=== PATIENT | male | born 1950 | race Two or more races ===

== ENCOUNTER 2017-01-29 03:40 | Emergency (ER) | payer MEDICARE, MEDICAID ==
[~2017-01-29] VITALS: Ht 167.6 cm; Wt 65.3 kg
[2017-01-29 04:00] VITALS: BP 205/101
[2017-01-29] MEDS ORDERED: DiphenhydrAMINE 50mg/ml Inj IVP ONE (04:00)
[2017-01-29] MEDS ORDERED: Solu-MEDROL 125mg Inj IVP ONE (04:00)
[2017-01-29] MEDS ORDERED: BENADRYL25 MG ORAL (04:00)
[2017-01-29] MEDS ORDERED: PREDNISONE20 MG ORAL (04:00)
--- NOTE | 2017-01-29 04:01 | Emergency Room Report ---
History of Present Illness General Chief Complaint: Allergic Reaction Source: Patient Present Illness [facility] This is a 66-year-old male who had a recent dental surgery last week. He was started on Augmentin. He had amoxicillin before with minimal side effect. Yesterday he broke out in a rash. Itching. He stopped the medicine but still itching. No fever chills but no nausea no vomiting. No respiratory complaint. Has not take anything else for this. Allergies: Coded Allergies: LEVOFLOXACIN (Verified Allergy, Unknown, 01/29/17) Patient History Past Medical History: see triage record, old chart reviewed Past Surgical History: other Pertinent Family History: none Social History: Denies: smoking Immunizations: other Reviewed Nursing Documentation: PMH: Agreed, PSxH: Agreed Nursing Documentation-PMH Past Medical History: No Stated History Review of Systems Eye: Denies: blurred vision, eye pain ENT: Denies: ear pain, nose congestion, throat swelling Respiratory: Denies: cough, shortness of breath Cardiovascular: Denies: chest pain, palpitations Gastrointestinal: Denies: abdominal pain, diarrhea, nausea, vomiting Musculoskeletal: Denies: back pain, joint pain Skin: Denies: rash Neurological: Denies: headache, numbness Endocrine: Denies: increased thirst, increased urine Hematologic/Lymphatic: Denies: easy bruising All Other Systems: negative except mentioned in HPI Physical Exam Vital Signs Date Time Temp Pulse Resp B/P Pulse Ox O2 Delivery O2 Flow Rate FiO2 01/29/17 03:51 97.9 58 16 205/101 99 Room Air vital was high blood pressure Sp02 EP Interpretation: reviewed, normal General Appearance: well appearing, no apparent distress, alert Head: normocephalic, atraumatic Eyes: bilateral eye EOMI, bilateral eye PERRL ENT: hearing grossly normal, normal pharynx Neck: full range of motion, supple, no meningismus Respiratory: chest non-tender, lungs clear, normal breath sounds Cardiovascular #1: regular rate, rhythm, no murmur Gastrointestinal: normal bowel sounds, non tender, no mass, no organomegaly, no bruit, non-distended Musculoskeletal: back normal, gait/station normal, normal range of motion Neurologic: alert, oriented x3 Psychiatric: mood/affect normal Skin: warm/dry, other - Scattered urticaria Medical Decision Making Diagnostic Impression: Primary Impression: Allergic reaction Qualified Codes: T78.40XA - Allergy, unspecified, initial encounter Additional Impression: Hypertension Qualified Codes: I10 - Essential (primary) hypertension ER Course Patient with allergic action to Augmentin. No anaphylaxis. No respiratory issue. Better after medication. We'll discharge home. We'll stop the antibiotics. Last Vital Signs Date Time Temp Pulse Resp B/P Pulse Ox O2 Delivery O2 Flow Rate FiO2 01/29/17 03:51 97.9 58 16 205/101 99 Room Air Status: improved Disposition: HOME, SELF-CARE Condition: Stable Scripts Prednisone* (PREDNISONE*) 20 Mg Tablet 40 MG ORAL DAILY, #10 TAB Prov: MARIAM OSHEA M.D. 01/29/17 Diphenhydramine Hcl* (BENADRYL*) 25 Mg Capsule 50 MG ORAL Q6H Y for Itching, #30 CAP Prov: MARIAM OSHEA M.D. 01/29/17 Patient Instructions: Drug Allergy Additional Instructions: Stop antibiotics. From now on your allergic to penicillin base antibiotics. Followup your DrChavez in 2-3 days. Return if symptom worsen. MARIAM OSHEA M.D. Jan 29, 2017 04:01
[2017-01-29 04:27] VITALS: BP 183/95
[2017-01-29 04:55] VITALS: BP 183/95
== END 2017-01-29 04:55 | disposition home or self-care (01) ==
LOC: EMR 03:50
DX: L50.9 Urticaria, unspecified (principal); T36.0X5A Adverse effect of penicillins, initial encounter; Y92.9 Unspecified place or not applicable; I10 Essential (primary) hypertension
CPT/HCPCS: 96374; 96375; 99284; J1200; J2930

== ENCOUNTER 2017-03-11 21:43 | Inpatient (IN) | payer MEDICARE, MEDICAID ==
[~2017-03-11] VITALS: Ht 170.2 cm; Wt 68.0 kg
[~2017-03-11 21:43] MED LIST: BENADRYL25 MG ORAL; PREDNISONE20 MG ORAL
[2017-03-11] MEDS ORDERED: SIMVASTATIN5 MG ORAL (22:12)
[2017-03-11] MEDS ORDERED: ASPIR 8181 MG ORAL (22:12)
[2017-03-11] MEDS ORDERED: ZETIA10 MG ORAL (22:12)
[2017-03-11] MEDS ORDERED: BENAZEPRIL HCL10 MG ORAL (22:12)
[2017-03-11] MEDS ORDERED: Morphine Sulfate 4mg/ml Inj IVP ONE (22:45)
[2017-03-11 23:37] LABS: APPEARANCE,URINE CLEAR; KETONES,URINE NEGATIVE (NEGATIVE); LEUKOCYTE ESTERASE ,URINE 1+ (NEGATIVE); NITRITE,URINE NEGATIVE (NEGATIVE); PH,URINE 5 (4.5-8.0); PROTEIN,URINE NEGATIVE (NEGATIVE); UROBILINOGEN,URINE NORMAL MG/DL (0.0-1.0)
[2017-03-11 23:38] LABS: BASOPHILS % (AUTO) 0.7 % (0.0-2.0); EOSINOPHILS % (AUTO) 1.7 % (0.0-3.0); LYMPHOCYTES % (AUTO) 27.4 % (20.0-45.0); MEAN CORPUSCULAR HGB CONC 34.6 G/DL (32.0-36.0); MEAN CORPUSCULAR VOLUME 95 FL (80-99); MONOCYTES % (AUTO) 6.3 % (1.0-10.0); NEUTROPHILS % (AUTO) 63.8 % (45.0-75.0); PLATELET COUNT 250 K/UL (150-450); RED BLOOD COUNT 4.48 M/UL (4.70-6.10); RED CELL DISTRIBUTION WIDTH 12.3 % (11.6-14.8); WHITE BLOOD COUNT 11.8 K/UL (4.8-10.8)
[2017-03-11 23:55] VITALS: BP 185/118
[2017-03-11 23:56] LABS: ALBUMIN/GLOBULIN RATIO 1.4 (1.0-2.7); CALCIUM 9.7 mg/dL (8.6-10.2); CREATININE 1.4 mg/dL (0.7-1.2); GLOMERULAR FILTRATION RATE 50.7 mL/min (>60); POTASSIUM 4.6 mEQ/L (3.4-4.9); TOTAL PROTEIN 7.1 g/dL (6.6-8.7)
[2017-03-12] VITALS (7 sets, daily range): BP systolic 141–162; BP diastolic 90–98
[2017-03-12 00:03] LABS: INR 0.9 (0.9-1.1); PROTHROMBIN TIME 9.9 SEC (9.30-11.50)
[2017-03-12 00:03] LABS: BACTERIA,URINE OCCASIONAL /HPF; MUCUS,URINE OCCASIONAL /LPF (NONE/OCC); RBC,URINE 0-2 /HPF (0 - 0); SQUAMOUS EPITHELIAL CELL,UR OCCASIONAL /LPF (NONE/OCC)
--- NOTE | 2017-03-12 04:33 | Emergency Room Report ---
History of Present Illness General Chief Complaint: Abdominal Pain Source: Patient Present Illness HPI Patient presents with 3 days of intermittent mid abdominal pain. It has worsened today and is severe (7/10) when moving about. There is some underlying pain. No change in bowels, moved earlier. No blood in stool. Some nausea. No fevers. No vomiting. No dysuria, hematuria. Some change in appetite. No medicine taken for the pain. Pain radiates somewhat to L flank. Not rad to back. No prior GI work up or colonoscopy. Umbilical hernia repair. Not area of tenderness. No chest pain, palpitations, h/o a fib. No diabetes. No headache, dizziness. No rashes, joint pain. H/O HTN. Allergies: Coded Allergies: PENICILLINS (Verified Allergy, Mild, hives, 03/12/17) LEVOFLOXACIN (Verified Allergy, Unknown, 01/29/17) Patient History Past Medical History: see triage record, HTN Past Surgical History: other - umbilical hernia repair Social History: Denies: smoking - former Social History Narrative with daughter Reviewed Nursing Documentation: PMH: Agreed, PSxH: Agreed Nursing Documentation-PMH Past Medical History: No History, Except For Hx Hypertension: Yes Hx Gastrointestinal Problems: Yes - ulcers Review of Systems All Other Systems: negative except mentioned in HPI Physical Exam Vital Signs Date Time Temp Pulse Resp B/P (MAP) Pulse Ox O2 Delivery O2 Flow Rate FiO2 03/11/17 21:44 98.1 75 20 208/118 98 Room Air Sp02 EP Interpretation: reviewed, normal General Appearance: well appearing, no apparent distress, GCS 15 Head: normocephalic Eyes: bilateral eye normal inspection, bilateral eye PERRL ENT: moist mucus membranes Neck: supple Respiratory: lungs clear, normal breath sounds Cardiovascular #1: regular rate, rhythm, no edema Cardiovascular #2: 2+ radial (R) Gastrointestinal: normal inspection, normal bowel sounds, no mass, non- distended, no rebound, guarding - mid abdomen, tenderness, scaphoid Musculoskeletal: back normal, gait/station normal, normal range of motion, no calf tenderness Neurologic: alert, oriented x3, grossly normal Psychiatric: mood/affect normal Skin: normal inspection, warm/dry Medical Decision Making Diagnostic Impression: Primary Impression: Omental infarction ER Course Patient with abdominal pain, intermittent without fever or change in bowels. Ddx: diverticulitis, IBS, GItis, muscle strain, UTI, hernia amongst others. Exam is significant and patient needs evaluation with EKG, labs, CT abd/pelvis with contrast. Patient will be treated with zofran and morphine. (Initially reluctant to receive analgesia as states not significant pain when recumbent.) IV hydration ordered. Complicated patient. Labs with mild leukocytosis. Mild renal insufficiency. Importance of full CT with circulatory evaluation exceeds risk. Contrast ordered. Improved with tx. Antibiotics not indicated. Needs observation due to omental infarct and leukocytosis. Not surgical problem (may need vascular evaluation). Discussed with Dr. Osei. Discussed with Dr. To who accepts the patient. Admit med. Laboratory Tests Test 03/11/17 22:45 03/11/17 23:15 White Blood Count 11.8 K/UL (4.8-10.8) H Red Blood Count 4.48 M/UL (4.70-6.10) L Hemoglobin 14.8 G/DL (14.2-18.0) Hematocrit 42.7 % (42.0-52.0) Mean Corpuscular Volume 95 FL (80-99) Mean Corpuscular Hemoglobin 33.0 PG (27.0-31.0) H Mean Corpuscular Hemoglobin Concent 34.6 G/DL (32.0-36.0) Red Cell Distribution Width 12.3 % (11.6-14.8) Platelet Count 250 K/UL (150-450) Mean Platelet Volume 6.0 FL (6.5-10.1) L Neutrophils (%) (Auto) 63.8 % (45.0-75.0) Lymphocytes (%) (Auto) 27.4 % (20.0-45.0) Monocytes (%) (Auto) 6.3 % (1.0-10.0) Eosinophils (%) (Auto) 1.7 % (0.0-3.0) Basophils (%) (Auto) 0.7 % (0.0-2.0) Prothrombin Time 9.9 SEC (9.30-11.50) Prothrombin Time INR 0.9 (0.9-1.1) PTT 27 SEC (23-33) Sodium Level 140 mEQ/L (135-145) Potassium Level 4.6 mEQ/L (3.4-4.9) Chloride Level 103 mEQ/L (98-107) Carbon Dioxide Level 26 mEQ/L (20-30) Anion Gap 11 (5-15) Blood Urea Nitrogen 25 mg/dL (7-23) H Creatinine 1.4 mg/dL (0.7-1.2) H Estimate Glomerular Filtration Rate 50.7 mL/min (>60) Glucose Level 100 mg/dL (74-106) Calcium Level 9.7 mg/dL (8.6-10.2) Total Bilirubin 0.3 mg/dL (0.0-1.2) Aspartate Amino Transferase (AST) 25 U/L (5-40) Alanine Aminotransferase (ALT) 29 U/L (3-41) Alkaline Phosphatase 92 U/L (40-129) Total Protein 7.1 g/dL (6.6-8.7) Albumin 4.2 g/dL (3.5-5.2) Globulin 2.9 g/dL Albumin/Globulin Ratio 1.4 (1.0-2.7) Lipase 42 U/L (< 60) Urine Color Yellow Urine Appearance Clear Urine pH 5 (4.5-8.0) Urine Specific [place] 1.020 (1.005-1.035) Urine Protein Negative (NEGATIVE) Urine Glucose (UA) Negative (NEGATIVE) Urine Ketones Negative (NEGATIVE) Urine Occult Blood Negative (NEGATIVE) Urine Nitrite Negative (NEGATIVE) Urine Bilirubin Negative (NEGATIVE) Urine Urobilinogen Normal MG/DL (0.0-1.0) Urine Leukocyte Esterase 1+ (NEGATIVE) H Urine RBC 0-2 /HPF (0 - 0) H Urine WBC 2-4 /HPF (0 - 0) Urine Squamous Epithelial Cells Occasional /LPF Urine Bacteria Occasional /HPF (NONE) Urine Mucus Occasional /LPF EKG Diagnostic Results Rate: bradycardiac Rhythm: NSR ST Segments: no acute changes Rhythm Strip Diag. Results EP Interpretation: yes Rhythm: no PVC's, no ectopy, other - jimmie CT/MRI/US Diagnostic Results CT/MRI/US Diagnostic Results : Imaging Test Ordered: abdomen/pelvis Impression omental infarct Impression: Inflammatory change of the mental fat, as described. This could represent a small omental infarct No evidence of acute process otherwise. Circumferential mural thickening of the distal abdominal aorta. Probably on the basis of atherosclerosis; focal aortitis as etiology not completely excludable but much less likely Bilateral renal parapelvic cysts Bilateral renal subcentimeter low-attenuation lesions, too small to characterize , most likely benign simple cyst. No further followup necessary Other findings as noted, including posterior dependent ulnar atelectasis, degenerative lumbar spondylosis, small fat-containing left inguinal hernia Last Vital Signs Date Time Temp Pulse Resp B/P (MAP) Pulse Ox O2 Delivery O2 Flow Rate FiO2 03/12/17 15:56 97.6 57 19 141/93 96 Room Air Status: improved Disposition: ADMITTED INPATIENT Condition: Serious Referrals: NON PHYSICIAN (PCP) Deny Hall M.D. Mar 12, 2017 04:33
--- NOTE | 2017-03-12 09:30 | Diagnostic Imaging Report ---
Clinical Indication: Abdominal pain x1 day Technique: Patient given oral contrast. IV administration nonionic contrast. Venous phase spiral acquisition obtained through the abdomen and pelvis. Multiplanar reconstructions were generated. Total dose length product 577 mGycm. CTDIvol(s) 11 mGy. Dose reduction achieved using automated exposure control Comparison: None Findings: There is a small fat-containing left inguinal hernia. No evidence of diverticulosis or diverticulitis. The appendix is not definitely identified. No findings to suggest acute appendicitis are evident, however. Contrast is seen throughout the entirety of the small bowel and well into the colon. No small bowel distention or small bowel wall thickening demonstrated. The distal esophagus, stomach, duodenum are unremarkable. No free or loculated intraperitoneal air or fluid is evident. There is focal increased attenuation of the omental fat just above the umbilicus and just to the right of midline anteriorly. The liver, gallbladder, bile ducts, pancreas, spleen, adrenals are unremarkable. The kidneys demonstrate bilateral parapelvic cysts. They also demonstrate bilateral subcentimeter low-attenuation parenchymal lesions are too small to characterize. No renal or ureteral calculi, hydronephrosis, hydroureter demonstrated. No pelvic mass or adenopathy. No retroperitoneal or mesenteric mass or adenopathy. The distal abdominal aorta demonstrates circumferential thickening and slight expansion. There are atherosclerotic calcifications scattered within the abdominal aorta. No significant periaortic inflammation demonstrated. The included lung bases demonstrate some posterior dependent atelectatic changes. The bones are unremarkable except for degenerative lumbar spondylosis. Impression: Inflammatory change of the mental fat, as described. This could represent a small omental infarct No evidence of acute process otherwise. Circumferential mural thickening of the distal abdominal aorta. Probably on the basis of atherosclerosis; focal aortitis as etiology not completely excludable but much less likely Bilateral renal parapelvic cysts Bilateral renal subcentimeter low-attenuation lesions, too small to characterize, most likely benign simple cyst. No further followup necessary Other findings as noted, including posterior dependent ulnar atelectasis, degenerative lumbar spondylosis, small fat-containing left inguinal hernia This agrees with the preliminary interpretation provided overnight by [facility] teleradiology service. The CT scanner at [facility] is accredited by the [employer] and the scans are performed using protocols designed to limit radiation exposure to as low as reasonably achievable to attain images of sufficient resolution adequate for diagnostic evaluation.
[2017-03-12] MEDS: D5NS 1,000 ML IV SCH ×2 (09:57→19:00)
[2017-03-12] MEDS: Enoxaparin 30mg Inj SUBQ SCH (11:09)
--- NOTE | 2017-03-12 11:13 | Consultation ---
History of Present Illness General Date patient seen: Mar 12, 2017 Chief Complaint: Abdominal Pain Reason for Consultation: abdominal pain Present Illness HPI 66 year old male in otherwise good health presented to ED with complaints of acute onset mid abdominal pain for 1 day. Patient states that he was at home resting when he noted some vague cramping mid abdominal pain. Pain progressively worsened over the next few hours until it was unbearable and he came to ED for evaluation. Pain cramping mid abdominal pain that is 10/10 at max with no radiation. No associated nausea or emesis. passing flatus. last BM this morning and loose. Has never had similar events prior. CT done in ED demonstrated small hernia with possible omental infarction. Surgery called to evaluate. PMHx: kidney stones, HTN PSHx: appendectomy in childhood, umbilical hernia repair 30 yrs ago, knee surgery FHx: non contributory Social Hx: positive tobacco, social EtOH, negative IVDA Allergies: PCN ( Hives) Allergies: Coded Allergies: LEVOFLOXACIN (Verified Allergy, Unknown, 01/29/17) Medication History Scheduled Aspirin* (Aspir 81*), 81 MG ORAL DAILY, (Reported) Benazepril Hcl* (Benazepril Hcl*), 10 MG ORAL DAILY, (Reported) Ezetimibe (Zetia*), 10 MG ORAL BEDTIME, (Reported) Prednisone* (Prednisone*), 40 MG ORAL DAILY Simvastatin (Zocor), 5 MG ORAL BEDTIME, (Reported) Scheduled PRN Diphenhydramine Hcl* (Benadryl*), 50 MG ORAL Q6H PRN for Itching Patient History Healthcare decision maker Resuscitation status Advanced Directive on File Past Medical/Surgical History Past Medical/Surgical History: (1) Omental infarction Review of Systems Constitutional: Denies: no symptoms, see HPI, chills, sweats, fever, malaise, weakness, other Eye: Denies: no symptoms, see HPI, eye pain, blurred vision, tearing, double vision, nose pain, nose congestion, acuity changes, discharge, other ENT: Denies: no symptoms, see HPI, ear pain, ear discharge, nose pain, nose congestion, throat pain, throat swelling, mouth pain, hearing loss, nasal discharge, other Respiratory: Denies: no symptoms, see HPI, cough, orthopnea, shortness of breath, stridor, wheezing, GUERRA, sputum, other Cardiovascular: Denies: no symptoms, see HPI, chest pain, edema, palpitations, syncope, PND, other Gastrointestinal: Reports: abdominal pain Genitourinary: Denies: no symptoms, see HPI, discharge, dysuria, frequency, hematuria, pain, retention, incontinence, urgency, vag bleed/dc, other Musculoskeletal: Denies: no symptoms, see HPI, back pain, gout, joint pain, joint swelling, muscle pain, muscle stiffness, other Skin: Denies: no symptoms, see HPI, rash, change in color, change in hair/nails , dryness, lesions, other Psychiatric: Denies: no symptoms, see HPI, prior hx, anxiety, depressed feelings, emotional problems, SI, HI, hallucinations, other Neurological: Denies: no symptoms, see HPI, headache, numbness, paresthesia, seizure, tingling, tremors, focal weakness, syncope, dizziness, other Endocrine: Denies: no symptoms, see HPI, excessive sweating, flushing, intolerance to temperature, increased thirst, increased urine, unexplained weight loss, other Hematologic/Lymphatic: Denies: no symptoms, see HPI, anemia, blood clots, easy bleeding, easy bruising, swollen glands, diathesis, other All Other Systems: negative except mentioned in HPI Physical Exam General Appearance: WD/WN, no apparent distress, alert Lines, tubes and drains: peripheral HEENT: normocephalic, atraumatic, mucous membranes moist, PERRL Neck: non-tender, normal alignment, normal inspection Respiratory/Chest: normal breath sounds, no respiratory distress, no accessory muscle use Cardiovascular/Chest: normal peripheral pulses, normal rate, regular rhythm Abdomen: normal bowel sounds, soft, no organomegaly, no mass, tender - tender at superior aspect of prior umbilical hernia repair incision. Extremities: normal inspection Skin Exam: normal pigmentation Neurologic: alert, oriented x 3, responsive Last 24 Hour Vital Signs Date Time Temp Pulse Resp B/P (MAP) Pulse Ox O2 Delivery O2 Flow Rate FiO2 03/12/17 09:57 159/94 03/12/17 08:32 97.5 56 19 159/94 96 Room Air 03/12/17 06:18 51 13 163/98 98 Room Air 03/12/17 05:19 97.2 58 15 155/93 97 Room Air 03/12/17 02:30 97.2 48 15 156/90 97 Room Air 03/12/17 00:30 98.1 48 14 162/91 97 Room Air 03/11/17 23:55 98.1 56 15 185/118 98 Room Air 03/11/17 21:44 98.1 75 20 208/118 98 Room Air Laboratory Tests Test 03/11/17 22:45 03/11/17 23:15 White Blood Count 11.8 K/UL (4.8-10.8) H Red Blood Count 4.48 M/UL (4.70-6.10) L Hemoglobin 14.8 G/DL (14.2-18.0) Hematocrit 42.7 % (42.0-52.0) Mean Corpuscular Volume 95 FL (80-99) Mean Corpuscular Hemoglobin 33.0 PG (27.0-31.0) H Mean Corpuscular Hemoglobin Concent 34.6 G/DL (32.0-36.0) Red Cell Distribution Width 12.3 % (11.6-14.8) Platelet Count 250 K/UL (150-450) Mean Platelet Volume 6.0 FL (6.5-10.1) L Neutrophils (%) (Auto) 63.8 % (45.0-75.0) Lymphocytes (%) (Auto) 27.4 % (20.0-45.0) Monocytes (%) (Auto) 6.3 % (1.0-10.0) Eosinophils (%) (Auto) 1.7 % (0.0-3.0) Basophils (%) (Auto) 0.7 % (0.0-2.0) Prothrombin Time 9.9 SEC (9.30-11.50) Prothromb Time International Ratio 0.9 (0.9-1.1) Activated Partial Thromboplast Time 27 SEC (23-33) Sodium Level 140 mEQ/L (135-145) Potassium Level 4.6 mEQ/L (3.4-4.9) Chloride Level 103 mEQ/L (98-107) Carbon Dioxide Level 26 mEQ/L (20-30) Anion Gap 11 (5-15) Blood Urea Nitrogen 25 mg/dL (7-23) H Creatinine 1.4 mg/dL (0.7-1.2) H Estimat Glomerular Filtration Rate 50.7 mL/min (>60) Glucose Level 100 mg/dL (74-106) Calcium Level 9.7 mg/dL (8.6-10.2) Total Bilirubin 0.3 mg/dL (0.0-1.2) Aspartate Amino Transf (AST/SGOT) 25 U/L (5-40) Alanine Aminotransferase (ALT/SGPT) 29 U/L (3-41) Alkaline Phosphatase 92 U/L (40-129) Total Protein 7.1 g/dL (6.6-8.7) Albumin 4.2 g/dL (3.5-5.2) Globulin 2.9 g/dL Albumin/Globulin Ratio 1.4 (1.0-2.7) Lipase 42 U/L (< 60) Urine Color Yellow Urine Appearance Clear Urine pH 5 (4.5-8.0) Urine Specific [place] 1.020 (1.005-1.035) Urine Protein Negative (NEGATIVE) Urine Glucose (UA) Negative (NEGATIVE) Urine Ketones Negative (NEGATIVE) Urine Occult Blood Negative (NEGATIVE) Urine Nitrite Negative (NEGATIVE) Urine Bilirubin Negative (NEGATIVE) Urine Urobilinogen Normal MG/DL (0.0-1.0) Urine Leukocyte Esterase 1+ (NEGATIVE) H Urine RBC 0-2 /HPF (0 - 0) H Urine WBC 2-4 /HPF (0 - 0) Urine Squamous Epithelial Cells Occasional /LPF Urine Bacteria Occasional /HPF (NONE) Urine Mucus Occasional /LPF Height (Feet): 5 Height (Inches): 7.00 Weight (Pounds): 150 Medications Current Medications Medications (Trade) Dose Ordered Sig/Kevin Route PRN Reason Start Time Stop Time Status Last Admin Dose Admin Benazepril HCl (Lotensin) 40 mg DAILY ORAL 03/12/17 09:00 04/11/17 08:59 03/12/17 09:57 Dextrose/Sodium Chloride 1,000 ml @ 100 mls/hr Q10H IV 03/12/17 09:00 04/11/17 08:59 03/12/17 09:57 Enoxaparin Sodium (Lovenox) 30 mg DAILY SUBQ 03/12/17 09:00 04/11/17 08:59 Assessment/Plan Problem List: (1) Umbilical hernia, incarcerated Assessment & Plan: 66 year old male with likely recurrent umbilical hernia with small incarcerated piece of omentum. Afebrile, HD stable, exam as above. CT reviewed and noted possible small recurrence in umbilical hernia which has small omentum incarcerated; consistent with abdominal exam. Left inguinal hernia noted on CT but benign on exam. No acute surgical intervention necessary at this time. Will monitor exam for now. if not improved over the next 24hrs will likely need surgery. okay for clear liquid diet for now thank you for this consult will follow with recs ICD Codes: K42.0 - Umbilical hernia with obstruction, without gangrene SNOMED: [id number] Status: stable Luis MDurga vazquez Mar 12, 2017 11:13
--- NOTE | 2017-03-12 13:07 | Consultation ---
Consult Note Consult Note Full nephrology consult dictated #[id number] ELVER SHARMA Mar 12, 2017 13:07
[2017-03-12] MEDS ORDERED: Morphine Sulfate 4mg/ml Inj IV PRN (13:30)
--- NOTE | 2017-03-12 16:47 | Diagnostic Imaging Report ---
Indication: Chronic renal failure and hypertension Technique: Grayscale and duplex images of the kidneys, retroperitoneum, and bladder were obtained. Comparison:Reference made to CT abdomen pelvis 03/11/2017 Findings: Right kidney measures 10.7 cm in length. Left kidney measures 10.5 cm in length. Both kidneys demonstrate normal echogenicity. There is bilateral hydronephrosis versus parapelvic cysts, favor the latter. Also demonstrated on recent CT non-shadowing echogenic structure seen in the lower pole right kidney. This could be artifactual, as it is not definitely demonstrated on recent CT scan.. No focal abnormality. Normal inferior vena cava. Bladder demonstrates 35 mL postvoid residual. Impression: Bilateral renal parapelvic cysts versus hydronephrosis, favor the former, also demonstrated on recent CT scan Minimal (35 mL), postvoid bladder residual..
--- NOTE | 2017-03-12 19:15 | Consultation ---
DATE OF CONSULTATION: 03/12/2017 NEPHROLOGY CONSULTATION REFERRING PHYSICIAN: Jose To M.D Reason For Consult: The patient has some underlying chronic kidney disease. History of Present Illness: This is a very pleasant 66-year-old, Venezuelan-speaking gentleman, who is speaking Armenian to some degree, has been brought to the [facility] with abdominal pain, was found to have incarcerated umbilical hernia and contemplating to do operation on him; however, he is found to have a serum creatinine of about 1.4 mg/dL with EGFR determined at around 30 mL/min. He denies any nonsteroidal anti-inflammatory drug abuse. Also, he is claiming that he has had multiple kidney stones in the past and he has some nocturia at night. A urinalysis obtained has shown no evidence of RBCs or WBCs, and according to the CT scan of the abdomen and pelvis done about 3 months ago did not show any evidence of residual stones according to him. It seems that the kidney stone that he has passed was calcium oxalate, but he is not sure of that. Past Medical History: Significant for hypertension for at least 15 to 20 years. He has been taking medication for that. Also recurrent kidney stones as I mentioned in the history of present illness. Past Surgical History: Appendectomy as a child, umbilical hernia repair about 30 years ago, and also knee surgery. Current Mediations: Aspirin 81 mg p.o. daily, benazepril 10 mg p.o. daily, Zetia 10 mg p.o. daily, and simvastatin 5 mg p.o. at bedtime. ALLERGIES: Penicillin, which causes hives. Social History: He has been smoking about a half a pack of cigarettes per day since the age of 15 up to about 3 months ago and he quit smoking. He drinks alcohol socially. No IV drug abuse. FAMILY HISTORY: Noncontributory. Review of Systems: General: He has not had any significant weight change. No chills or fever. Cardiovascular: Denies any chest pain, dyspnea with exertion, or orthopnea. Skin: Denies any rash or photosensitivity. Musculoskeletal: Denies any arthralgia or myalgia. Respiratory: Denies any cough, purulent sputum production, hemoptysis, or wheezing. Gastrointestinal: Denies any nausea, vomiting, diarrhea, melena, or hematochezia. Neurological: Denies any paresthesia, muscle weakness, diplopia, or seizure. Endocrine: Denies any polydipsia, polyuria, or cold or heat intolerance. Urinary: Denies any urinary foaminess, hematuria, or dysuria. He has had some nocturia 2 to 3 times at night. Hematological: Denies any easy bruising or easy bleeding. The remainder of the review of the systems has been essentially negative. PHYSICAL EXAMINATION: GENERAL: He does not seem to be in much acute distress. Vital Signs: Blood pressure is 157/93, pulse of 54, respirations 18, and temperature 97.6 degrees. HEENT: Head is atraumatic. Eyes, pupils reactive to light. No evidence of papilledema. Ears, canals are clear. Tympanic membranes are intact. Nose, nares are patent without any nasal discharge. Throat without inflammation or exudate. Neck: Supple. Jugular venous distention is within normal limits. No cervical adenopathy. No thyromegaly. HEART: Regular rhythm. No gallop. LUNGS: Clear to auscultation. Abdomen: Supple. Bowel sounds positive. There is some incisional umbilical hernia protuberance with some pain. Extremities: Lower extremities show no cyanosis or clubbing. No pedal edema. Neurological: Cranial nerves are intact. There is no focal neurological deficit present. Laboratory Data: Urinalysis with pH of 5, specific gravity 1.020, negative protein, and no RBCs or WBCs. Sodium 140, potassium 4.6, chloride 103, carbon dioxide 26, BUN is 25, and creatinine is 1.4. LFTs within normal range. Albumin is 4.2. WBC is 11.8, hemoglobin is 14.8, hematocrit 42.7, and platelets of 250,000. IMPRESSION: 1. He has chronic kidney disease stage 3, most likely due to renal stone disease and maybe some renovascular disease. 2. Chronic smoker with underlying chronic obstructive pulmonary disease. 3. No signs of fluid overload. 4. Hypertension is optimally controlled. 5. He probably has an incarcerated umbilical hernia. Plan: I would obtain a urine microalbumin to creatinine ratio. I would increase benazepril to 20 mg p.o. daily and add Norvasc 5 mg p.o. daily to the regimen.Will check renal US Preston Ramsey M.D. DR: CLAUDIO JOB#: [id number] CC: SANJANA
[2017-03-13] VITALS: BP 143/87
[2017-03-13 04:31] VITALS: BP 129/78
[2017-03-13] MEDS: D5NS 1,000 ML IV SCH ×2 (05:18→16:43)
[2017-03-13 07:09] LABS: BASOPHILS % (AUTO) 0.7 % (0.0-2.0); EOSINOPHILS % (AUTO) 1.7 % (0.0-3.0); LYMPHOCYTES % (AUTO) 22.2 % (20.0-45.0); MEAN CORPUSCULAR HEMOGLOBIN 30.9 PG (27.0-31.0); MEAN CORPUSCULAR HGB CONC 33.2 G/DL (32.0-36.0); MEAN CORPUSCULAR VOLUME 93 FL (80-99); MEAN PLATELET VOLUME 6.1 FL (6.5-10.1); MONOCYTES % (AUTO) 7.7 % (1.0-10.0); NEUTROPHILS % (AUTO) 67.6 % (45.0-75.0); PLATELET COUNT 251 K/UL (150-450); RED BLOOD COUNT 4.35 M/UL (4.70-6.10); RED CELL DISTRIBUTION WIDTH 12.3 % (11.6-14.8); WHITE BLOOD COUNT 9.9 K/UL (4.8-10.8)
[2017-03-13 07:11] LABS: AMYLASE 61 U/L (10-110); ANION GAP 13 (5-15); CALCIUM 8.6 mg/dL (8.6-10.2); CARBON DIOXIDE 25 mEQ/L (20-30); CHLORIDE 106 mEQ/L (98-107); CREATININE 1.2 mg/dL (0.7-1.2); CRP QUANT 2.1 mg/dL (< 0.5); GLOMERULAR FILTRATION RATE > 60 mL/min (>60); HEMOLYSIS 3; LIPASE 38 U/L (< 60); POTASSIUM 3.8 mEQ/L (3.4-4.9); SODIUM 144 mEQ/L (135-145)
[2017-03-13 08:15] VITALS: BP 141/88
--- NOTE | 2017-03-13 08:16 | History and Physical Report ---
DATE OF ADMISSION: 03/12/2017 REASON FOR ADMISSION: This 66-year-old male came to emergency room at [facility]. The patient is complaining of a severe abdominal pain, some distention. Normal bowel movement. No jaundice. No vomiting. No GI bleeding. The patient on admission had a CBC, chemistry, UA, and CT scan of the abdomen. CT scan of the abdomen shows multiple renal parapelvic small cysts and possible omental infarction. White count elevated to 11,000. The patient's UA shows white blood cells 4 to 6 and red blood cells 0 to 2, urine bacteria occasional. The patient's potassium 4.6, BUN 25, creatinine 1.4, blood sugar 100. Creatinine clearance 50 mL/minute. The patient is admitted to medical/surgical floor. PAST MEDICAL HISTORY/REVIEW OF SYSTEMS: Cardiovascular: Remarkable for history of hypertension. No history of stroke or heart attack. RESPIRATORY: No history of emphysema or COPD. Gastrointestinal: Peptic ulcer disease approximately 7 years ago. No bleeding. ENDOCRINE: No thyroid problem or diabetes. MUSCULOSKELETAL SYSTEM: History of surgery on the right knee torn ligamentum 4 years ago, Dr. Gillette. NERVOUS SYSTEM: No paralysis, stroke, or muscle atrophy. PSYCHIATRY: Fully oriented to time and place. FAMILY HISTORY: Mother from heart attack and father from complication of aneurysm of the aorta. ALLERGIES: Levaquin and another antibiotic. SOCIAL HISTORY: The patient is , has a daughter. The patient is a smoker for 50 years, approximately half-pack a day. Alcohol occasionally. No street drugs. PAST SURGICAL HISTORY: Right knee ligamentum tear and renal stones. MEDICATIONS: Benazepril and aspirin. PHYSICAL EXAMINATION: General: The patient is a alert, well-developed, well-nourished male in his 60s. No acute distress. The patient is in bed. VITAL SIGNS: Stable. SKIN: Clear. Warm. No rashes. No lymph node enlargement. HEENT: Head is normocephalic. Baldness. Ears clear. Eyes, corrective eye glasses. No nystagmus. No jaundice. Mouth, clear and moist. Upper dentures. Nose, clear. No discharge. Neck: No jugular venous distention. Carotid artery +2. Supple. No tracheal deviation or thyroid gland mass. CHEST: No deformity or asymmetry. LUNGS: Clear to auscultation to percussion. No rales or rhonchi. HEART: Sinus rhythm. No ectopy. No murmur. No S3 or S4. Abdomen: Soft. Painful epigastrium on the left of umbilicus. Mild rebound. Liver and spleen not enlarged. Extremities: No edema or varicose vein. No calf tenderness. Right knee arthroscopic surgery. Peripheral pulse equal bilaterally. DIAGNOSTIC DATA: The electrocardiogram, normal sinus bradycardia, rate 54, otherwise normal ECG. DIAGNOSES: 1. Acute abdominal pain, mild, leukocytosis. 2. Possible omental thrombosis. 3. Renal insufficiency, mild, stage 1 to 2. 4. Urinary tract infection. PLAN: Bedrest. Deep venous thrombosis prophylaxis. Surgical consultation. Keep the patient NPO, on IV fluid. Control blood pressure. Jose To M.D. DR: BIB JOB#: [id number] CC: SANJANA
--- NOTE | 2017-03-13 08:55 | General Progress Note ---
Subjective Constitutional: Reports: malaise, weakness HEENT: Reports: no symptoms Cardiovascular: Reports: no symptoms Respiratory: Reports: no symptoms Gastrointestinal/Abdominal: Reports: abdominal pain Genitourinary: Reports: no symptoms Neurologic/Psychiatric: Reports: no symptoms, other - seen by surgeon- observe if pain persist hernia repair surgery Endocrine: Reports: no symptoms Allergies: Coded Allergies: PENICILLINS (Verified Allergy, Mild, hives, 03/12/17) LEVOFLOXACIN (Verified Allergy, Unknown, 01/29/17) Objective Last 24 Hour Vital Signs Date Time Temp Pulse Resp B/P (MAP) Pulse Ox O2 Delivery O2 Flow Rate FiO2 03/13/17 08:15 98.3 65 21 141/88 97 Room Air 03/13/17 04:31 98.6 62 21 129/78 98 Room Air 03/13/17 00:00 98.1 57 21 143/87 95 Room Air 03/12/17 20:00 98.1 67 22 145/98 96 Room Air 03/12/17 15:56 97.6 57 19 141/93 96 Room Air 03/12/17 14:01 54 157/93 03/12/17 11:44 97.6 54 18 157/93 96 Room Air 03/12/17 09:57 159/94 Laboratory Tests 03/12/17 16:00: Urine Random Creatinine [Pending], Urine Random Microalbumin [Pending], Urine Creatinine 55.4, Urine Microalbumin/Creatinine Ratio [Pending] 03/13/17 05:15: White Blood Count 9.9, Red Blood Count 4.35L, Hemoglobin 13.5L, Hematocrit 40.6L , Mean Corpuscular Volume 93, Mean Corpuscular Hemoglobin 30.9, Mean Corpuscular Hemoglobin Concent 33.2, Red Cell Distribution Width 12.3, Platelet Count 251, Mean Platelet Volume 6.1L, Neutrophils (%) (Auto) 67.6, Lymphocytes ( %) (Auto) 22.2, Monocytes (%) (Auto) 7.7, Eosinophils (%) (Auto) 1.7, Basophils (%) (Auto) 0.7, Erythrocyte Sedimentation Rate 20, Sodium Level 144, Potassium Level 3.8, Chloride Level 106, Carbon Dioxide Level 25, Anion Gap 13, Blood Urea Nitrogen 13, Creatinine 1.2, Estimat Glomerular Filtration Rate > 60, Glucose Level 114H, Lactic Acid Level 0.90, Calcium Level 8.6, C-Reactive Protein, Quantitative 2.1H, Amylase Level 61, Lipase 38 Height (Feet): 5 Height (Inches): 7.00 Weight (Pounds): 150 SHANNON MILES Mar 13, 2017 08:55
--- NOTE | 2017-03-13 08:59 | General Progress Note ---
Subjective Allergies: Coded Allergies: PENICILLINS (Verified Allergy, Mild, hives, 03/12/17) LEVOFLOXACIN (Verified Allergy, Unknown, 01/29/17) Objective Last 24 Hour Vital Signs Date Time Temp Pulse Resp B/P (MAP) Pulse Ox O2 Delivery O2 Flow Rate FiO2 03/13/17 08:15 98.3 65 21 141/88 97 Room Air 03/13/17 04:31 98.6 62 21 129/78 98 Room Air 03/13/17 00:00 98.1 57 21 143/87 95 Room Air 03/12/17 20:00 98.1 67 22 145/98 96 Room Air 03/12/17 15:56 97.6 57 19 141/93 96 Room Air 03/12/17 14:01 54 157/93 03/12/17 11:44 97.6 54 18 157/93 96 Room Air 03/12/17 09:57 159/94 Laboratory Tests 03/12/17 16:00: Urine Random Creatinine [Pending], Urine Random Microalbumin [Pending], Urine Creatinine 55.4, Urine Microalbumin/Creatinine Ratio [Pending] 03/13/17 05:15: White Blood Count 9.9, Red Blood Count 4.35L, Hemoglobin 13.5L, Hematocrit 40.6L , Mean Corpuscular Volume 93, Mean Corpuscular Hemoglobin 30.9, Mean Corpuscular Hemoglobin Concent 33.2, Red Cell Distribution Width 12.3, Platelet Count 251, Mean Platelet Volume 6.1L, Neutrophils (%) (Auto) 67.6, Lymphocytes ( %) (Auto) 22.2, Monocytes (%) (Auto) 7.7, Eosinophils (%) (Auto) 1.7, Basophils (%) (Auto) 0.7, Erythrocyte Sedimentation Rate 20, Sodium Level 144, Potassium Level 3.8, Chloride Level 106, Carbon Dioxide Level 25, Anion Gap 13, Blood Urea Nitrogen 13, Creatinine 1.2, Estimat Glomerular Filtration Rate > 60, Glucose Level 114H, Lactic Acid Level 0.90, Calcium Level 8.6, C-Reactive Protein, Quantitative 2.1H, Amylase Level 61, Lipase 38 Height (Feet): 5 Height (Inches): 7.00 Weight (Pounds): 150 General Appearance: no apparent distress, alert EENT: PERRL/EOMI, pharynx normal Neck: supple, normal inspection Cardiovascular: normal rate, regular rhythm Respiratory/Chest: lungs clear, no respiratory distress Abdomen: no mass, guarding, tender Pelvis: normal external exam Genitourinary/Rectal: normal genital exam Extremities: normal range of motion, non-tender, normal inspection Edema: no edema noted Arm (L), no edema noted Arm (R), no edema noted Leg (L), no edema noted Leg (R), no edema noted Pedal (L), no edema noted Pedal (R), no edema noted 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
[2017-03-13] MEDS: Enoxaparin 30mg Inj SUBQ SCH (10:11)
[2017-03-13 12:15] VITALS: BP 139/90
[2017-03-13 12:36] LABS: CREATININE RANDOM URINE 49.3 mg/dL (Not Estab.); MICROALBUMIN/CREATININE RATIO 7.1 mg/g creat (0.0-30.0)
--- NOTE | 2017-03-13 13:03 | Nephrology Progress Note ---
Assessment/Plan Assessment 1)Mai is better 2) CKD III 3) Parapelvic Cyst, I doubt obstructive uropathy 4) Umbilical hernia Plan: Continue current measures Awaiting surgical opinion Subjective Subjective Renal US shows parapelvic cyst vs hdronephrosis, CT of abd and pelvis sis compatible with parapelvic cyst, creat is 1.2 Objective Objective Last 24 Hour Vital Signs Date Time Temp Pulse Resp B/P (MAP) Pulse Ox O2 Delivery O2 Flow Rate FiO2 03/13/17 12:15 98.6 85 23 139/90 99 Room Air 03/13/17 10:11 65 141/88 03/13/17 10:02 141/88 03/13/17 08:15 98.3 65 21 141/88 97 Room Air 03/13/17 04:31 98.6 62 21 129/78 98 Room Air 03/13/17 00:00 98.1 57 21 143/87 95 Room Air 03/12/17 20:00 98.1 67 22 145/98 96 Room Air 03/12/17 15:56 97.6 57 19 141/93 96 Room Air 03/12/17 14:01 54 157/93 Laboratory Tests 03/12/17 16:00: Urine Random Creatinine 49.3, Urine Random Microalbumin 3.5, Urine Creatinine 55.4, Urine Microalbumin/Creatinine Ratio 7.1 03/13/17 05:15: White Blood Count 9.9, Red Blood Count 4.35L, Hemoglobin 13.5L, Hematocrit 40.6L , Mean Corpuscular Volume 93, Mean Corpuscular Hemoglobin 30.9, Mean Corpuscular Hemoglobin Concent 33.2, Red Cell Distribution Width 12.3, Platelet Count 251, Mean Platelet Volume 6.1L, Neutrophils (%) (Auto) 67.6, Lymphocytes ( %) (Auto) 22.2, Monocytes (%) (Auto) 7.7, Eosinophils (%) (Auto) 1.7, Basophils (%) (Auto) 0.7, Erythrocyte Sedimentation Rate 20, Sodium Level 144, Potassium Level 3.8, Chloride Level 106, Carbon Dioxide Level 25, Anion Gap 13, Blood Urea Nitrogen 13, Creatinine 1.2, Estimat Glomerular Filtration Rate > 60, Glucose Level 114H, Lactic Acid Level 0.90, Calcium Level 8.6, C-Reactive Protein, Quantitative 2.1H, Amylase Level 61, Lipase 38 Height (Feet): 5 Height (Inches): 7.00 Weight (Pounds): 150 General Appearance: WD/WN, no apparent distress EENT: PERRL/EOMI Neck: non-tender, normal alignment Cardiovascular: normal rate, regular rhythm, no JVD Respiratory/Chest: lungs clear, normal breath sounds Abdomen: soft, distended, tender Extremities: normal range of motion, non-tender 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
--- NOTE | 2017-03-13 14:47 | Anethesia Preoperative Eval ---
Anesthesia Pre-op PMH/ROS General Date of Evaluation: Mar 13, 2017 Time of Evaluation: 14:21 Anesthesiologist: Jeremy ASA Score: ASA 2 Mallampati Score Class I : Soft palate, uvula, fauces, pillars visible Class II: Soft palate, uvula, fauces visible Class III: Soft palate, base of uvula visible Class IV: Only hard plate visible Mallampati Classification: Class II Surgeon: Dari Diagnosis: Abd Pain Surgical Procedure: Laparscopic Umbilical Hernia Repair Anesthesia History: none Family History: no anesthesia problems Allergies: Coded Allergies: PENICILLINS (Verified Allergy, Mild, hives, 03/12/17) LEVOFLOXACIN (Verified Allergy, Unknown, 01/29/17) Medications: see eMAR Past Medical History Cardiovascular: Reports: HTN Anesthesia Pre-op Phys. Exam Physician Exam Last Vital Signs Date Time Temp Pulse Resp B/P (MAP) Pulse Ox O2 Delivery O2 Flow Rate FiO2 03/13/17 12:15 98.6 85 23 139/90 99 Room Air Constitutional: NAD Neurologic: CN 2-12 intact Cardiovascular: RRR Respiratory: CTA Gastrointestinal: S/NT/ND Airway Exam Mallampati Score: Class II MO: full ROM: full Teeth: intact Anesthesia Pre-op A/P Labs Hematology Test 03/13/17 05:15 White Blood Count 9.9 K/UL (4.8-10.8) Red Blood Count 4.35 M/UL (4.70-6.10) L Hemoglobin 13.5 G/DL (14.2-18.0) L Hematocrit 40.6 % (42.0-52.0) L Mean Corpuscular Volume 93 FL (80-99) Mean Corpuscular Hemoglobin 30.9 PG (27.0-31.0) Mean Corpuscular Hemoglobin Concent 33.2 G/DL (32.0-36.0) Red Cell Distribution Width 12.3 % (11.6-14.8) Platelet Count 251 K/UL (150-450) Mean Platelet Volume 6.1 FL (6.5-10.1) L Neutrophils (%) (Auto) 67.6 % (45.0-75.0) Lymphocytes (%) (Auto) 22.2 % (20.0-45.0) Monocytes (%) (Auto) 7.7 % (1.0-10.0) Eosinophils (%) (Auto) 1.7 % (0.0-3.0) Basophils (%) (Auto) 0.7 % (0.0-2.0) Erythrocyte Sedimentation Rate 20 MM/HR (0-20) Chemistry Test 03/13/17 05:15 Sodium Level 144 mEQ/L (135-145) Potassium Level 3.8 mEQ/L (3.4-4.9) Chloride Level 106 mEQ/L (98-107) Carbon Dioxide Level 25 mEQ/L (20-30) Anion Gap 13 (5-15) Blood Urea Nitrogen 13 mg/dL (7-23) Creatinine 1.2 mg/dL (0.7-1.2) Estimat Glomerular Filtration Rate > 60 mL/min (>60) Glucose Level 114 mg/dL (74-106) H Lactic Acid Level 0.90 mmol/L (0.66-2.22) Calcium Level 8.6 mg/dL (8.6-10.2) C-Reactive Protein, Quantitative 2.1 mg/dL (< 0.5) H Amylase Level 61 U/L (10-110) Lipase 38 U/L (< 60) Risk Assessment & Plan Assessment: ASA 2 Plan: GA Status Change Before Surgery: No Pre-Antibiotics Drug: Tommie Olivas MD Mar 13, 2017 14:47
--- NOTE | 2017-03-13 14:53 | General Progress Note ---
Progress Note Progress Note Surgery: doing well. no acute events. still having lots of pain around incarcerated omental fat umbilical hernia recurrence. afebrile, HD stable, labs reviewed. exam with tenderness around prior repaired umbilical hernia CT with likely incarcerated omentum in small recurrence. Given lack of improvement over the last 24hrs will likely need surgical repair. omentum incarcerated and not infarcted causing pain for prolonged period of time and not reducible. spoke with patient and family. risks, benefits, and alternatives discussed in detail. patient consented to surgery -NPO with IV fluids -Surgery scheduled for tomorrow AM 09:00 -lap vs open umbilical hernia repair -consent -AM labs Durga Chapin Mar 13, 2017 14:53
--- NOTE | 2017-03-13 14:54 | Pre-Procedure Note/Attestation ---
Pre-Procedure Note/Attestation Complete Prior to Procedure Planned Procedure: not applicable Procedure Narrative: laparoscopic ventral hernia repair with mesh Indications for Procedure Pre-Operative Diagnosis: incarcerated recurrent ventral/umbilical hernia Attestation I attest that I discussed the nature of the procedure; its benefits; risks and complications; and alternatives (and the risks and benefits of such alternatives ), prior to the procedure, with the patient (or the patient's legal solar sales representative and assessor). I attest that, if there was a reasonable possibility of needing a blood transfusion, the patient (or the patient's legal solar sales representative and assessor) was given the [facility] standardized written summary, pursuant to the Matti Sahil Blood Safety Act ([place] Health and Safety Code # 1645, as amended). I attest that I re-evaluated the patient just prior to the surgery and that there has been no change in the patient's H&P, except as documented below: Durga Chapin Mar 13, 2017 14:54
[2017-03-13 16:00] VITALS: BP 140/91
[2017-03-13 20:00] VITALS: BP 141/88
[2017-03-14] VITALS (10 sets, daily range): BP systolic 110–155; BP diastolic 64–98
[2017-03-14] MEDS: D5NS 1,000 ML IV SCH ×2 (01:57→11:00)
[2017-03-14 07:17] LABS: ANION GAP 11 (5-15); CALCIUM 8.9 mg/dL (8.6-10.2); CARBON DIOXIDE 27 mEQ/L (20-30); CHLORIDE 104 mEQ/L (98-107); CREATININE 1.2 mg/dL (0.7-1.2); GLOMERULAR FILTRATION RATE > 60 mL/min (>60); HEMOLYSIS 4; POTASSIUM 3.6 mEQ/L (3.4-4.9); SODIUM 142 mEQ/L (135-145)
[2017-03-14 07:23] LABS: BASOPHILS % (AUTO) 0.6 % (0.0-2.0); EOSINOPHILS % (AUTO) 1.6 % (0.0-3.0); LYMPHOCYTES % (AUTO) 24.1 % (20.0-45.0); MEAN CORPUSCULAR HEMOGLOBIN 31.4 PG (27.0-31.0); MEAN CORPUSCULAR HGB CONC 33.6 G/DL (32.0-36.0); MEAN CORPUSCULAR VOLUME 93 FL (80-99); MEAN PLATELET VOLUME 5.6 FL (6.5-10.1); MONOCYTES % (AUTO) 8.3 % (1.0-10.0); NEUTROPHILS % (AUTO) 65.4 % (45.0-75.0); PLATELET COUNT 249 K/UL (150-450); RED BLOOD COUNT 4.25 M/UL (4.70-6.10); RED CELL DISTRIBUTION WIDTH 12.1 % (11.6-14.8); WHITE BLOOD COUNT 8.9 K/UL (4.8-10.8)
[2017-03-14] MEDS ORDERED: Bupivacaine w/Epi 0.5% 30ml Vial INJ ONE (08:08)
[2017-03-14] MEDS ORDERED: Vancomycin 1gm inj IVPB ONE (08:32)
[2017-03-14] MEDS ORDERED: LR 1000ml ONE (09:00)
[2017-03-14] MEDS ORDERED: Midazolam 2mg/2ml Inj ONE (09:00)
[2017-03-14] MEDS ORDERED: Glycopyrrolate 0.2mg/ml 1ml Vial ONE (09:00)
[2017-03-14] MEDS ORDERED: Sterile Water Irrig 1000ml IRRIG ONE (09:00)
[2017-03-14] MEDS ORDERED: Propofol 200mg/20ml IV ONE (09:00)
[2017-03-14] MEDS ORDERED: Neostigmine 1mg/ml 10ml Inj ONE (09:00)
[2017-03-14] MEDS ORDERED: Morphine Sulfate 10mg/ml Inj ONE (09:00)
[2017-03-14] MEDS ORDERED: Zemuron 50mg/5ml Inj IV ONE (09:00)
[2017-03-14] MEDS ORDERED: NS Irrig 1000ml IRRIG ONE (09:00)
[2017-03-14] MEDS ORDERED: Ketorolac 30mg Inj ONE (09:00)
[2017-03-14] MEDS ORDERED: fentaNYL 100 mcg/2 mL IV ONE (09:00)
[2017-03-14] MEDS ORDERED: Succinylcholine 20mg/ml 10ml vial ONE (09:00)
[2017-03-14] MEDS ORDERED: LR 1000ml 1,000 ML IVLG SCH (09:55)
--- NOTE | 2017-03-14 09:55 | Anethesia Preoperative Eval ---
Anesthesia Pre-op PMH/ROS General Date of Evaluation: Mar 14, 2017 Time of Evaluation: 08:32 Anesthesiologist: Rodrigo ASA Score: ASA 2 Mallampati Score Class I : Soft palate, uvula, fauces, pillars visible Class II: Soft palate, uvula, fauces visible Class III: Soft palate, base of uvula visible Class IV: Only hard plate visible Mallampati Classification: Class II Surgeon: Gautam Diagnosis: Ventral hernia Surgical Procedure: laparoscopic ventral hernia repair Anesthesia History: none Social History: smoking - h/o Family History: no anesthesia problems Allergies: Coded Allergies: PENICILLINS (Verified Allergy, Mild, hives, 03/12/17) LEVOFLOXACIN (Verified Allergy, Unknown, 01/29/17) Medications: see eMAR Past Medical History Cardiovascular: Reports: HTN, Denies: CAD, SD, valve dz, arrhythmia, other Pulmonary: Reports: COPD - mild, Denies: asthma, KYLE, other Gastrointestinal/Genitourinary: Reports: GERD, other - h/o kidney stones, Denies: CRI, ESRD Neurologic/Psychiatric: Denies: dementia, CVA, depression/anxiety, TIA, other Endocrine: Denies: DM, hypothyroidism, steroids, other HEENT: Denies: cataract (L), cataract (R), glaucoma, [place] (L), [place] (R), other Hematology/Immune: Denies: anemia, DVT, bleeding disorder, other Musculoskeletal/Integumentary: Denies: OA, RA, DJD, DDD, edema, other PMH Narrative: as above admitted for acute abdominal pain possible incarcerated hernia PSxH Narrative: appendectomy, hernia repair, knee scope Anesthesia Pre-op Phys. Exam Physician Exam Last Vital Signs Date Time Temp Pulse Resp B/P (MAP) Pulse Ox O2 Delivery O2 Flow Rate FiO2 03/14/17 04:00 97.7 68 20 155/98 96 Room Air Constitutional: NAD Neurologic: CN 2-12 intact Cardiovascular: RRR, no M/R/G Respiratory: CTA Gastrointestinal: other - some tenderness along midline Airway Exam Mallampati Score: Class II MO: limited Neck: stiff ROM: limited Teeth: missing Dentures: no upper, no lower Anesthesia Pre-op A/P Labs Hematology Test 03/14/17 05:15 White Blood Count 8.9 K/UL (4.8-10.8) Red Blood Count 4.25 M/UL (4.70-6.10) L Hemoglobin 13.3 G/DL (14.2-18.0) L Hematocrit 39.7 % (42.0-52.0) L Mean Corpuscular Volume 93 FL (80-99) Mean Corpuscular Hemoglobin 31.4 PG (27.0-31.0) H Mean Corpuscular Hemoglobin Concent 33.6 G/DL (32.0-36.0) Red Cell Distribution Width 12.1 % (11.6-14.8) Platelet Count 249 K/UL (150-450) Mean Platelet Volume 5.6 FL (6.5-10.1) L Neutrophils (%) (Auto) 65.4 % (45.0-75.0) Lymphocytes (%) (Auto) 24.1 % (20.0-45.0) Monocytes (%) (Auto) 8.3 % (1.0-10.0) Eosinophils (%) (Auto) 1.6 % (0.0-3.0) Basophils (%) (Auto) 0.6 % (0.0-2.0) Chemistry Test 03/14/17 05:15 Sodium Level 142 mEQ/L (135-145) Potassium Level 3.6 mEQ/L (3.4-4.9) Chloride Level 104 mEQ/L (98-107) Carbon Dioxide Level 27 mEQ/L (20-30) Anion Gap 11 (5-15) Blood Urea Nitrogen 9 mg/dL (7-23) Creatinine 1.2 mg/dL (0.7-1.2) Estimat Glomerular Filtration Rate > 60 mL/min (>60) Glucose Level 111 mg/dL (74-106) H Calcium Level 8.9 mg/dL (8.6-10.2) Studies Pre-op Studies: EKG - NSR Risk Assessment & Plan Assessment: ASA 2 Plan: GA with ETT Status Change Before Surgery: No Pre-Antibiotics Drug: Vanco 1 gr. Given Within 1 Hr of Incision: Yes Time Given: 09:48 JACKIE HELM M.D. Mar 14, 2017 09:55
[2017-03-14] MEDS ORDERED: Meperidine 25mg/0.5ml Inj (FOR RIGORS ONLY) IV PRN (10:00)
[2017-03-14] MEDS ORDERED: Hydromorphone 0.5mg/0.5ml inj IVP PRN ×2 (10:00→11:15)
[2017-03-14] MEDS ORDERED: DiphenhydrAMINE 50mg/ml Inj IVP PRN (10:00)
--- NOTE | 2017-03-14 11:00 | Brief Operative Note ---
Immediate Post Operative Note Operative Note Pre-op Diagnosis: incarcerated recurrent ventral/umbilical hernia Procedure: laparoscopic reduction of incarcerated falciform fat Post-op Diagnosis: incarcerated falciform ligament fat Surgeon: nataliya Anesthesiologist: tammy Anesthesia: general Specimen: yes - incarcerated falciform fat Complications: none Condition: stable Fluids: see records Estimated Blood Loss: none Implant(s) used?: No Durga Chapin Mar 14, 2017 10:59
--- NOTE | 2017-03-14 11:02 | Immediate Post-Op Evaluation ---
Immediate Post-Op Evalulation Immediate Post-Op Evalulation Procedure: Laparoscopic repair of ventral hernia Date of Evaluation: Mar 14, 2017 Time of Evaluation: 11:01 IV Fluids: 1000 Blood Products: none Estimated Blood Loss: min Urinary Output: none Blood Pressure Systolic: 118 Blood Pressure Diastolic: 64 Pulse Rate: 72 Respiratory Rate: 20 O2 Sat by Pulse Oximetry: 99 Temperature (Fahrenheit): 98.1 Pain Score (1-10): 2 Nausea: No Vomiting: No Complications none Patient Status: reacts, patent, extubated, none Hydration Status: adequate JACKIE HELM M.D. Mar 14, 2017 11:02
[2017-03-14] MEDS ORDERED: Ketorolac 30mg Inj IM PRN (11:15)
[2017-03-14] MEDS ORDERED: Norco 10mg/325mg tab ORAL PRN (11:15)
[2017-03-14] MEDS ORDERED: HYDROmorphone 1mg/ml Carpuject IVP PRN (11:15)
[2017-03-14] MEDS ORDERED: Norco 5mg/325mg tab ORAL PRN (11:15)
--- NOTE | 2017-03-14 13:36 | Nephrology Progress Note ---
Assessment/Plan Assessment 1)Mai is better 2) CKD III 3) Parapelvic Cyst, I doubt obstructive uropathy 4) Umbilical hernia s/p surgery Plan: Continue current measures Subjective Subjective Still some abdominal pain, creat is 1.2, he had hernia reduction surgery, good U /O Objective Objective Last 24 Hour Vital Signs Date Time Temp Pulse Resp B/P (MAP) Pulse Ox O2 Delivery O2 Flow Rate FiO2 03/14/17 11:50 98.5 78 15 137/84 97 Nasal Cannula 3.0 03/14/17 11:40 83 22 113/70 100 Nasal Cannula 3.0 03/14/17 11:25 79 11 130/71 100 Nasal Cannula 3.0 03/14/17 11:15 70 19 111/64 100 Simple Mask 6.0 03/14/17 11:04 74 20 121/68 100 Simple Mask 6.0 03/14/17 11:02 72 20 99 03/14/17 10:59 75 21 110/67 100 Simple Mask 6.0 03/14/17 10:54 98.1 79 31 119/68 100 Simple Mask 6.0 03/14/17 04:00 97.7 68 20 155/98 96 Room Air 03/14/17 00:00 98.1 63 18 141/95 95 Room Air 03/13/17 20:00 97.8 66 18 141/88 96 Room Air 03/13/17 16:00 97.3 63 20 140/91 95 Room Air Intake and Output 03/14/17 03/15/17 19:00 07:00 Intake Total 1500 ml Output Total 30 ml Balance 1470 ml IV Total 1500 ml Estimated Blood Loss 30 ml Laboratory Tests 03/14/17 05:15: White Blood Count 8.9, Red Blood Count 4.25L, Hemoglobin 13.3L, Hematocrit 39.7L , Mean Corpuscular Volume 93, Mean Corpuscular Hemoglobin 31.4H, Mean Corpuscular Hemoglobin Concent 33.6, Red Cell Distribution Width 12.1, Platelet Count 249, Mean Platelet Volume 5.6L, Neutrophils (%) (Auto) 65.4, Lymphocytes ( %) (Auto) 24.1, Monocytes (%) (Auto) 8.3, Eosinophils (%) (Auto) 1.6, Basophils (%) (Auto) 0.6, Sodium Level 142, Potassium Level 3.6, Chloride Level 104, Carbon Dioxide Level 27, Anion Gap 11, Blood Urea Nitrogen 9, Creatinine 1.2, Estimat Glomerular Filtration Rate > 60, Glucose Level 111H, Calcium Level 8.9 Height (Feet): 5 Height (Inches): 7.00 Weight (Pounds): 150 General Appearance: WD/WN, no apparent distress EENT: PERRL/EOMI, normal ENT inspection Neck: non-tender, normal alignment Cardiovascular: normal rate, regular rhythm, no JVD Respiratory/Chest: lungs clear, normal breath sounds Abdomen: normal bowel sounds, non tender, soft Extremities: non-tender, normal inspection 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
--- NOTE | 2017-03-14 15:50 | General Progress Note ---
Subjective HEENT: Reports: eye pain Cardiovascular: Reports: no symptoms Respiratory: Reports: no symptoms Gastrointestinal/Abdominal: Reports: no symptoms Genitourinary: Reports: no symptoms Allergies: Coded Allergies: PENICILLINS (Verified Allergy, Mild, hives, 03/12/17) LEVOFLOXACIN (Verified Allergy, Unknown, 01/29/17) Objective Last 24 Hour Vital Signs Date Time Temp Pulse Resp B/P (MAP) Pulse Ox O2 Delivery O2 Flow Rate FiO2 03/14/17 11:50 98.5 78 15 137/84 97 Nasal Cannula 3.0 03/14/17 11:40 83 22 113/70 100 Nasal Cannula 3.0 03/14/17 11:25 79 11 130/71 100 Nasal Cannula 3.0 03/14/17 11:15 70 19 111/64 100 Simple Mask 6.0 03/14/17 11:04 74 20 121/68 100 Simple Mask 6.0 03/14/17 11:02 72 20 99 03/14/17 10:59 75 21 110/67 100 Simple Mask 6.0 03/14/17 10:54 98.1 79 31 119/68 100 Simple Mask 6.0 03/14/17 04:00 97.7 68 20 155/98 96 Room Air 03/14/17 00:00 98.1 63 18 141/95 95 Room Air 03/13/17 20:00 97.8 66 18 141/88 96 Room Air 03/13/17 16:00 97.3 63 20 140/91 95 Room Air Intake and Output 03/14/17 03/15/17 19:00 07:00 Intake Total 1500 ml Output Total 30 ml Balance 1470 ml IV Total 1500 ml Estimated Blood Loss 30 ml Laboratory Tests 03/14/17 05:15: White Blood Count 8.9, Red Blood Count 4.25L, Hemoglobin 13.3L, Hematocrit 39.7L , Mean Corpuscular Volume 93, Mean Corpuscular Hemoglobin 31.4H, Mean Corpuscular Hemoglobin Concent 33.6, Red Cell Distribution Width 12.1, Platelet Count 249, Mean Platelet Volume 5.6L, Neutrophils (%) (Auto) 65.4, Lymphocytes ( %) (Auto) 24.1, Monocytes (%) (Auto) 8.3, Eosinophils (%) (Auto) 1.6, Basophils (%) (Auto) 0.6, Sodium Level 142, Potassium Level 3.6, Chloride Level 104, Carbon Dioxide Level 27, Anion Gap 11, Blood Urea Nitrogen 9, Creatinine 1.2, Estimat Glomerular Filtration Rate > 60, Glucose Level 111H, Calcium Level 8.9 Height (Feet): 5 Height (Inches): 7.00 Weight (Pounds): 150 SHANNON MILES Mar 14, 2017 15:50
--- NOTE | 2017-03-14 16:00 | General Progress Note ---
Subjective Allergies: Coded Allergies: PENICILLINS (Verified Allergy, Mild, hives, 03/12/17) LEVOFLOXACIN (Verified Allergy, Unknown, 01/29/17) Objective Last 24 Hour Vital Signs Date Time Temp Pulse Resp B/P (MAP) Pulse Ox O2 Delivery O2 Flow Rate FiO2 03/14/17 11:50 98.5 78 15 137/84 97 Nasal Cannula 3.0 03/14/17 11:40 83 22 113/70 100 Nasal Cannula 3.0 03/14/17 11:25 79 11 130/71 100 Nasal Cannula 3.0 03/14/17 11:15 70 19 111/64 100 Simple Mask 6.0 03/14/17 11:04 74 20 121/68 100 Simple Mask 6.0 03/14/17 11:02 72 20 99 03/14/17 10:59 75 21 110/67 100 Simple Mask 6.0 03/14/17 10:54 98.1 79 31 119/68 100 Simple Mask 6.0 03/14/17 04:00 97.7 68 20 155/98 96 Room Air 03/14/17 00:00 98.1 63 18 141/95 95 Room Air 03/13/17 20:00 97.8 66 18 141/88 96 Room Air 03/13/17 16:00 97.3 63 20 140/91 95 Room Air Intake and Output 03/14/17 03/15/17 19:00 07:00 Intake Total 1500 ml Output Total 30 ml Balance 1470 ml IV Total 1500 ml Estimated Blood Loss 30 ml Laboratory Tests 03/14/17 05:15: White Blood Count 8.9, Red Blood Count 4.25L, Hemoglobin 13.3L, Hematocrit 39.7L , Mean Corpuscular Volume 93, Mean Corpuscular Hemoglobin 31.4H, Mean Corpuscular Hemoglobin Concent 33.6, Red Cell Distribution Width 12.1, Platelet Count 249, Mean Platelet Volume 5.6L, Neutrophils (%) (Auto) 65.4, Lymphocytes ( %) (Auto) 24.1, Monocytes (%) (Auto) 8.3, Eosinophils (%) (Auto) 1.6, Basophils (%) (Auto) 0.6, Sodium Level 142, Potassium Level 3.6, Chloride Level 104, Carbon Dioxide Level 27, Anion Gap 11, Blood Urea Nitrogen 9, Creatinine 1.2, Estimat Glomerular Filtration Rate > 60, Glucose Level 111H, Calcium Level 8.9 Height (Feet): 5 Height (Inches): 7.00 Weight (Pounds): 150 General Appearance: alert, lethargic EENT: other - rt eye discomfort pain.No discharge no conjuctivitise, Rec.artificial tearses two qtt tid. Neck: supple, normal inspection Respiratory/Chest: lungs clear Abdomen: soft Neurologic: sportspersons II-XII grossly normal - AFTER SURGERY.aLERT NO ABDOMINAL PAIN. aMBULATE.d/C HOME TODAY F/UP dR John Murguia, Lymphatic: normal anterior cervical (L), normal anterior cervical (R), normal posterior cervical (L), normal posterior cervical (R), normal submandibular (L) , normal submandibular (R), normal supraclavicular (L), normal supraclavicular ( R), normal axillary (L), normal axillary (R), normal inguinal (L), normal inguinal (R), normal other SHANNON MILES Mar 14, 2017 16:00
[2017-03-14] MEDS ORDERED: D5NS 1000ml IV ONE (18:54)
--- NOTE | 2017-03-15 09:00 | Operative Note - Dictated ---
DATE OF OPERATION: 03/14/2017 Preoperative Diagnosis: Incarcerated recurrent ventral/umbilical hernia. POSTOPERATIVE DIAGNOSIS: Incarcerated falciform ligament fat with infarction of fat Procedure: Laparoscopic reduction of incarcerated falciform ligament fat. SURGEON: Durga Chapin M.D. REORDERING CLERK: None. ANESTHESIOLOGIST: Arnie Wallace M.D. ANESTHESIA: General CTA. Specimens: Incarcerated falciform ligament fat sent to pathology for review. COMPLICATIONS: None. CONDITION: Stable. FLUIDS: Please see anesthesia records. ESTIMATED BLOOD LOSS: Minimal. IV FLUIDS: Please see anesthesia records. Antibiotics: 2 grams Ancef intravenous given one hour prior to cut time. WOUND CLASSIFICATION: Class I. IMPLANTS USED: None. PERTINENT OPERATIVE FINDINGS: 1. Incarcerated falciform ligament fat at the distal end of the falciform ligament just cephalad to the patient's prior umbilical/ventral hernia repair. 2. Infarction of the incarcerated fat. 3. Reduction of incarcerated falciform ligament fat. 4. Division of the falciform ligament. 5. Satisfactory completion of procedure. Indications For Procedure: This is a 66-year-old male, presented with acute onset of worsening localized abdominal pain. In the emergency room, the patient had a CT scan, which demonstrated some possible omental infarction in the ventral abdomen. On examination, the patient was exquisitely tender just above the superior portion of his prior umbilical/ventral hernia repair that was done approximately 30 years ago. At this time, I believed the patient potentially had a recurrence of superior aspect of his prior repair with incarceration of omental fat and possible infarction of the omental fat. Over 24-hour period, the patient did not improve and the pain was persistent and therefore after explaining the risks, benefits, and alternative surgical intervention, the patient expressed desire to proceed with surgery. Operative Note: The patient was taken to the operating room and placed on the operating table in supine position. Bilateral arms out. All bony prominences were well padded with gel pads. Preoperative time-out was taken identifying the patient, procedure, operative staff, and surgical staff. SCDs were placed. A 2 g Ancef intravenous were given one hour prior to cut time. General anesthesia was induced and the patient was intubated. The abdomen was then prepped and draped in standard surgical fashion. We began by making a 5 mm port site incision at the left subcostal space at dewitt's point. Using a 0.5 mm camera and an Optiview port, the abdomen was entered under direct visualization without complication. The abdomen was insufflated 12 to 15 mmHg of Hg without complication. The patient tolerated the insufflation well. The laparoscope was then inserted into the abdomen and inspected. No injury from initial trocar placement was identified. On inspecting the abdomen, there was an area of inflammation around the most distal end of the falciform ligament. There was a small lip of omentum adhered to this. At this time, a secondary 5 mm trocar was placed under direct visualization in the left lower abdomen. Once this was complete, the left subcostal 5 mm port was up-sized to a 12 mm port. At this time, the omentum was grasped and gently pulled and with ease was dissected off and reduced it and held in position. When this was completed, there was an approximately 2 to 3 cm portion of the falciform ligament fat that was noted to be incarcerated with a defect in the falciform ligament. At this time, the ThunderBeat laparoscopic energy device was used to dissect out the preperitoneal space and reduce the less incarcerated fat. There was a band of tissue identified, which was causing the omental fat to be internally herniated and incarcerated. Once this was released, the fat was released and excised. The specimen was sent to pathology for review. Following this, the fascia was inspected and there was no significant defect noted in the ventral space. The prior umbilical ventral hernia repair was inspected and noted to be otherwise intact. Proximally to the falciform ligament, there were no abnormalities identified or hernias noted. The falciform ligament was taken down with energy device for better inspection of the area. Once fully inspected and no hernias or other abnormalities were noted, we inspected rest of the abdomen and noted everything to be otherwise intact. At this time, we began the conclusion of our procedure. Local anesthetic was infiltrated throughout the procedure at incision sites as necessary. The abdomen was desufflated and trocars removed under direct visualization. The specimen was sent to pathology. The 12 mm left subcostal fascia was closed using a 0 Vicryl suture. The skin incisions were then closed using a 4-0 Monocryl absorbable subcuticular suture. The patient tolerated procedure well, was extubated and taken to the postanesthetic care unit in stable condition. Durga Chapin M.D. DR: SUSI JOB#: [id number] CC: SANJANA
[2017-03-15 10:07] VITALS: BP 136/72
--- NOTE | 2017-03-15 10:07 | 48 Hour Post Anesthesia Eval ---
Post Anesthesia Evaluation Procedure: Laparoscopic repair of ventral hernia Date of Evaluation: Mar 15, 2017 Time of Evaluation: 10:05 Blood Pressure Systolic: 136 0: 72 Pulse Rate: 74 Respiratory Rate: 20 Temperature (Fahrenheit): 97.6 O2 Sat by Pulse Oximetry: 8 Airway: patent Nausea: No Vomiting: No Pain Intensity: 2 Hydration Status: adequate Cardiopulmonary Status: stable Mental Status/LOC: patient returned to baseline Follow-up Care/Observations: n/a Post-Anesthesia Complications: none Follow-up care needed: ready to discharge JACKIE HELM M.D. Mar 15, 2017 10:07
--- NOTE | 2017-03-16 07:44 | Discharge Summary ---
Discharge Summary Hospital Course Date of Admission Mar 12, 2017 at 03:59 Date of Discharge Mar 14, 2017 at 18:55 Admitting Diagnosis omental infarct KALA Diaz is a 66 year old male who was admitted on Mar 12, 2017 at 03:59 for Omental Infract Hospital Course [id number] Discharge Discharge Disposition Patient was discharged to Home (01) Discharge Diagnoses: Laury Oliva NP Mar 16, 2017 07:44
--- NOTE | 2017-03-17 03:00 | Discharge Summary 2 SIG ---
DATE OF ADMISSION: 03/12/2017 DATE OF DISCHARGE: 03/14/2017 CONSULTANTS: 1. Durga Chapin M.D. 2. Preston Ramsey M.D. Brief Hospital Course: The patient is a 66-year-old male, who came to [facility] complaining of severe abdominal pain with distention, he had normal bowel movement, no jaundice, and no vomiting. On evaluation at ED, laboratory work showed mild leukocytosis. Creatinine was elevated to 1.4 and BUN 25. UA showed white blood cell 4 to 6 and red blood cells 0 to 2 with occasional bacteria. Potassium was 4.6, BUN 25, creatinine 1.4, blood sugar 100, and creatinine clearance was 50 mL/minute. He was admitted to medical floor. CT of the abdomen and pelvis showed inflammatory change of the omental fat, could represent small omental infarct. Surgical evaluation was done. The patient was assessed to have recurrent umbilical hernia with small incarcerated piece of omentum. There was also left inguinal hernia noted on CT scan, but benign on examination. The patient was monitored. He was given clear liquid. He continued to have pain around the incarcerated omental fat umbilical hernia. Given lack of improvement for 24 hours, the patient needed surgical repair. Hernia was not reducible. On 03/14/2017, he underwent a laparoscopic reduction of the incarcerated falciform fat. He tolerated the procedure well. Postoperatively, he was continued on IV hydration and was given pain management. Diet was eventually advanced. He was also seen by Dr. Ramsey for evaluation of kidney function. The patient has chronic kidney disease stage 3, most likely due to renal stone. Antihypertensives were titrated. Benazepril was increased to 20 mg p.o. daily and Norvasc 5 mg was added. Renal ultrasound done showed bilateral renal parapelvic cyst. Both kidneys showed normal echogenicity. Urine culture did not isolate any growth. He was eventually discharged home. FINAL DIAGNOSES: 1. Incarcerated recurrent ventral/umbilical hernia, status post laparoscopic reduction of incarcerated falciform ligament fat. 2. Chronic kidney disease, stage 3. 3. Acute kidney injury. 4. Parapelvic cyst without obstructive uropathy. 5. Hypertension. PROCEDURE: Laparoscopic reduction of incarcerated falciform ligament fat. DISPOSITION: The patient was discharged home. DISCHARGE MEDICATIONS: Refer to medication list. ACTIVITY: Refer to home instructions. Jose To M.D. I have been assigned to dictate discharge summary on this account and I was not involved in the patient's management. Laury Oliva N.P. DR: Shana JOB#: [id number] CC: SANJANA
--- NOTE | 2017-03-19 19:21 | Cardiology Report ---
APPROVED REPORT EKG Measurement Heart [id number] Sinus bradycardia Otherwise normal ECG
--- NOTE | 2017-03-21 08:47 | Discharge Summary ---
DATE OF ADMISSION: 03/12/2017 DATE OF DISCHARGE: 03/14/2017 History And Hospital Course: The patient is a 66-year-old male who was admitted by [facility] where he presented with abdominal pain and mild leukocytosis. The patient was admitted to Medical/Surgical floor. The patient was NPO and take his IV fluids. Consultants were Dr. Preston Ramsey and . The patient had a CT scan of abdomen in the ER showed omental infarction and history of repair of ventral hernia many years ago. The patient is allergic to antibiotic, Levaquin and amoxicillin. Past medical history remarkable for hypertension and smoking. The patient's pain persisted. He was seen by surgeon, who recommended surgical laparoscopic intervention of the abdominal omental infarction. The patient underwent surgery on 03/14/2017. After surgery, the patient's abdomen was soft. Pain relieved. The patient is complaining of left eye pain. No visual changes in eye. The patient's white blood count came to normal limit, 9000, and the patient was discharged home with recommendation to see the Dr. 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 Artificial drops was given. The patient's condition was stable. Prognosis was good. Jose To M.D. DR: Vicky JOB#: [id number] CC:
== END 2017-03-14 18:55 | disposition home or self-care (01) | DRG 353 ==
LOC: EMR 22:30 → 4E 03-12 03:59 → EDBEDREQ 03-12 05:10 → 4E 03-12 18:55
PROC: 0WQF4ZZ Repair Abdominal Wall, Percutaneous Endoscopic Approach (ICD-10-PCS; principal; 2017-03-14 09:00)
PROC: 0J8 Subcutaneous Tissue and Fascia, Division (ICD-10-PCS; principal; 2017-03-14 09:00)
DX: K42.0 Umbilical hernia with obstruction, without gangrene (principal); K55.061 Focal (segmental) acute infarction of intestine, part unspecified; N17.9 Acute kidney failure, unspecified; Z72.0 Tobacco use; D72.829 Elevated white blood cell count, unspecified; K40.90 Unilateral inguinal hernia, without obstruction or gangrene, not specified as recurrent; I12.9 Hypertensive chronic kidney disease with stage 1 through stage 4 chronic kidney disease, or unspecified chronic kidney disease; N18.3 Chronic kidney disease, stage 3 (moderate); N20.0 Calculus of kidney; J44.9 Chronic obstructive pulmonary disease, unspecified; Z79.82 Long term (current) use of aspirin
CPT/HCPCS: 36415; 74177; 76775; 80048; 80053; 81003; 82043; 82150; 82570; 83605; 83690; 85025; 85610; 85651; 85730; 86140; 86850; 86900; 86901; 87086; 93005; 94003; 94150; 99285; J2250; J2405; J2710